=== PATIENT | male | born 1945 | race African-American/Black ===

== ENCOUNTER 2021-03-27 20:31 | Emergency (ER) | payer OTHER ==
[~2021-03-27] VITALS: Ht 165.1 cm; Wt 59.0 kg
[2021-03-27] MEDS ORDERED: ACETAMINOPHEN 325MG TABLET PO ONE (21:45)
[2021-03-28 08:30] VITALS: BP 134/79
== END 2021-03-28 08:32 | disposition home or self-care (01) ==
LOC: ER 20:31
DX: F10.129 Alcohol abuse with intoxication, unspecified (principal); Y90.0 Blood alcohol level of less than 20 mg/100 ml; M79.605 Pain in left leg
CPT/HCPCS: 72170; 73552; 82962; 93005; 99285